=== PATIENT | female | born 1935 | race Caucasian/White ===

== ENCOUNTER 2016-07-25 11:37 | Inpatient (IN) | payer MEDICARE, OTHER ==
--- NOTE | 2016-07-19 15:58 | MH ---
cc: GALLITO BARRETT M.D. DATE OF ADMISSION: 07/25/2016 1935 HISTORY OF PRESENT ILLNESS The patient is an 81-year-old white female with a history of coronary artery disease, paroxysmal atrial fibrillation, diabetes, sleep apnea, lung cancer, who is now admitted for cardiac catheterization. The patient has been having occasional episodes of mild chest discomfort that began a few months ago associated with shortness of breath. These chest pains last up to a few minutes and are described as "heaviness". She did undergo nuclear stress test recently which showed inferior ischemia. The degree of ischemia was felt to be mild to moderate. The patient denies syncope, pedal edema, paroxysmal nocturnal dyspnea. Occasionally she experiences moderate lightheadedness and infrequent palpitations lasting a few seconds. PAST MEDICAL HISTORY 1. Sleep apnea. 2. Chronic bronchitis. 3. Coronary artery disease status post stent of the proximal right coronary artery in 2010 using a 2.5-mm Promus stent. 4. Diabetes. 5. Hyperlipidemia. 6. Hypothyroidism. 7. Irritable bowel syndrome. 8. Lung cancer status post right upper lobectomy. 9. Paroxysmal atrial fibrillation diagnosed 11/01/2010. MEDICATIONS Her cardiac medications: 1. Aspirin 81 mg daily. 2. Imdur 30 mg daily. 3. Metoprolol succinate 100 mg daily. 4. Pradaxa 150 mg b.i.d. 5. Simvastatin 20 mg q.h.s. ALLERGIES CODEINE, ERYTHROMYCIN, PENICILLIN, MORPHINE, HYDROCODONE. FAMILY HISTORY Noncontributory. SOCIAL HISTORY The patient is a former smoker. She drinks occasional alcohol. REVIEW OF SYSTEMS Review of systems as in the history of present illness, otherwise negative or noncontributory. PHYSICAL EXAMINATION VITAL SIGNS: On physical examination, her blood pressure 120/66 with a pulse of 66, respirations 15. GENERAL: She is a well-developed, well-nourished white female in no acute distress. HEENT: Jugular venous pressure is normal. Carotid pulses are 2+ bilaterally and without bruits. CHEST: Examination of the chest reveals clear lung purvis. CARDIAC: On cardiac examination she has a regular rhythm and rate without S3-S4 or murmur. ABDOMEN: She has a soft, nontender abdomen. Bowel sounds are present. There is no definite hepatosplenomegaly. EXTREMITIES: Examination of the extremities reveals no clubbing, cyanosis or edema. Peripheral pulses are normal throughout. IMPRESSION Intermediate risk nuclear stress test findings, ongoing angina like chest discomfort in this 81-year-old white female with a history of multiple medical problems including coronary artery disease, diabetes, paroxysmal atrial fibrillation, lung cancer. Because of these nuclear stress test findings and ongoing chest pains she has been recommended cardiac catheterization with possible percutaneous coronary intervention. The nature of these procedures and potential risks have been outlined. She agrees to proceed. PLAN Cardiac catheterization on 07/25/2016. MD COOKIE Arias/TLL /2:06 PM /3:50 PM MTDD
[~2016-07-25] VITALS: Ht 154.9 cm; Wt 83.1 kg
[2016-07-25 12:22] VITALS: BP 146/96; PULSE 67; RESP 18; TEMP 98.3; O2SAT 94
[2016-07-25] MEDS ORDERED: METO100T9 PO (12:28)
[2016-07-25] MEDS ORDERED: SITA1TAB2 PO (12:28)
[2016-07-25] MEDS ORDERED: LEVO75TA3 PO (12:28)
[2016-07-25] MEDS ORDERED: PRAD150C PO (12:28)
[2016-07-25] MEDS ORDERED: ASPI81CH CHEW (12:28)
[2016-07-25] MEDS ORDERED: CITA20TA4 PO (12:28)
[2016-07-25] MEDS ORDERED: SIMV20TA PO (12:28)
[2016-07-25] MEDS ORDERED: PANT40TA3 PO (12:28)
[2016-07-25] MEDS ORDERED: GABA300C5 PO (12:28)
[2016-07-25] MEDS ORDERED: ISOS30TA3 PO (12:28)
[2016-07-25] MEDS ORDERED: ADVA115A INH (12:28)
[2016-07-25] MEDS ORDERED: DIAZ5TAB PO (12:28)
[2016-07-25 13:08] LABS: AUTOMATED NEUTROPHIL # 4.2 TH/MM3 (1.8-7.7); BASOPHIL # 0.1 TH/MM3 (0-0.2); BASOPHIL % 1.2 % (0.0-2.0); EOSINOPHIL # 0.3 TH/MM3 (0-0.4); EOSINOPHIL % 4.2 % (0.0-4.0); HEMATOCRIT 38.4 % (35.0-46.0); HEMO FLAGS DIFF FINAL; LYMPH % 22.9 % (9.0-44.0); LYMPHOCYTE # 1.5 TH/MM3 (1.0-4.8); MEAN CELL VOLUME 97.7 FL (80.0-100.0); MEAN CORPUSCULAR HEMOGLOBIN 33.5 PG (27.0-34.0); MEAN CORPUSCULAR HGB CONC 34.3 % (32.0-36.0); MONO % 6.3 % (0.0-8.0); NEUT % 65.4 % (16.0-70.0); PLATELET COUNT 184 TH/MM3 (150-450); RED BLOOD COUNT 3.93 MIL/MM3 (4.00-5.30); WHITE BLOOD COUNT 6.3 TH/MM3 (4.0-11.0)
[2016-07-25 13:16] LABS: PROTHROMBIN TIME - PATIENT 11.4 SEC (9.8-11.6)
[2016-07-25 13:23] LABS: POTASSIUM 4.4 MEQ/L (3.5-5.1)
[2016-07-25] MEDS ORDERED: HEPARIN-NS/PF INJ 500 ML ONE (13:40)
[2016-07-25] MEDS ORDERED: NITROGLYCERIN INJ 5 ML ONE (13:41)
[2016-07-25] MEDS ORDERED: VERAPAMIL HCL 5 MG/2 ML VIAL ONE (13:41)
[2016-07-25] MEDS ORDERED: HEPARIN SODIUM - IV 10,000 UNITS/10 ML VIAL ONE (13:41)
[2016-07-25] MEDS ORDERED: MIDAZOLAM HCL 2 MG/2 ML VIAL ONE (13:41)
[2016-07-25] MEDS ORDERED: SODIUM CHLORIDE 0.9% FLUSH 5 ML FLUSH IVF PRN (14:30)
[2016-07-25] MEDS ORDERED: MISC INFORMATION XX ONE (14:30)
[2016-07-25] MEDS ORDERED: IOHEXOL 350 MG/ML 100 ML BTL (for Cath Lab) OTHER ONE (15:22)
--- NOTE | 2016-07-25 15:36 | EKG ---
Date Performed: 07/25/2016 Time Performed: 12:33:34 PTAGE: 81 years EKG: Sinus rhythm Poor R wave progression - probable normal variant Anteroseptal T wave changes are nonspecific Border line ECG NO PREVIOUS TRACING DOCTOR: Nima Conner Interpretating Date/Time 07/25/2016 15:35:19
--- NOTE | 2016-07-25 15:38 | MA ---
cc: GALLITO BARRETT M.D. DATE 07/25/2016 Cc: DATE OF 1935 PROCEDURE Left heart catheterization, selective coronary angiography, left ventriculography. PROCEDURE NOTE The patient was brought to the cardiac catheterization laboratory in a fasting state after having signed informed consent. The right wrist area was prepped and draped as per policy and anesthetized with 1% lidocaine. Arterial access was obtained via the right radial artery and a 6-Egyptian sheath placed. Coronary arteriography was performed using a 6-Egyptian Amonate catheter. Additional shots were taken of the left coronary system with a Andreas left 3.5 catheter. Left ventriculography was done using a multipurpose catheter. There were no apparent immediate complications. A TR band was applied to her right wrist to achieve good hemostasis. HEMODYNAMIC RESULTS Left ventricle 147 with an end-diastolic pressure of 15. Aorta 143/68 with a mean of 99. There was no significant transvalvular aortic gradient on pullback of the pigtail catheter. CORONARY ARTERIOGRAPHY The left main has minimal distal disease resulting in up to 10% stenosis. The left anterior descending has fairly diffuse very proximal disease resulting in up to 40% stenosis. In the mid-LAD there is 20% stenosis. The distal LAD has minimal luminal irregularities. The LAD gives rise to a small diagonal which is free of disease. The left circumflex is a medium-sized vessel giving rise to two relatively small obtuse marginals. There are minimal luminal irregularities in the proximal left circumflex and proximal second obtuse marginal. The right coronary artery demonstrates a stent in its proximal portion. The stent is widely patent. The rest of the vessel has minimal luminal irregularities. LEFT VENTRICULOGRAPHY Contrast injection of the left ventricle reveals no segmental wall motion abnormalities. Ejection fraction is estimated at 65%. CONCLUSION 1. Moderate proximal LAD disease, otherwise mild three-vessel coronary artery disease. 2. Widely patent proximal right coronary artery stent. 3. Normal left ventricular function with estimated ejection fraction of 65%. MD COOKIE Arias/KEVIN /2:26 PM /3:31 PM [facility]
[2016-07-25] MEDS: METOPROLOL SUCCINATE 50 MG EXTENDED RELEASE TAB PO SCH (17:15)
[2016-07-25] MEDS ORDERED: AMIODARONE 150 MG/D5W 97 ML BOLUS 10 MINUTES IV ONE ×2 (17:30)
[2016-07-25] MEDS ORDERED: AMIODARONE 450 MG/D5W (EXCEL) 241 ML IV SCH ×2 (17:30)
[2016-07-25] MEDS ORDERED: FLUTICASONE SALMETEROL INH SCH (21:00)
[2016-07-25] MEDS: DIAZEPAM 5 MG TAB PO PRN (21:03)
[2016-07-25] MEDS: DABIGATRAN ETEXILATE 150 MG CAP PO SCH (21:03)
[2016-07-25] MEDS: GABAPENTIN 300 MG CAP PO SCH (21:03)
[2016-07-25] MEDS: SODIUM CHLORIDE 0.9% FLUSH 5 ML FLUSH IVF SCH (21:04)
[2016-07-25 22:30] VITALS: BP 155/96; PULSE 106; RESP 16; TEMP 98.2; O2SAT 98
[2016-07-25 23:00] VITALS: BP 147/88; PULSE 94; RESP 16; TEMP 98.7; O2SAT 98
[2016-07-26] VITALS (16 sets, daily range): BP systolic 94–140; BP diastolic 54–96; PULSE 57–89; RESP 16–18; TEMP 98.1–98.6; O2SAT 96–98
[2016-07-26] MEDS: ISOSORBIDE MONONITRATE 30 MG TAB PO SCH (06:00)
[2016-07-26] MEDS: LEVOTHYROXINE SODIUM 75 MCG TAB PO SCH (06:00)
--- NOTE | 2016-07-26 08:06 | EKG ---
Date Performed: 07/26/2016 Time Performed: 06:28:44 PTAGE: 81 years EKG: Atrial fibrillation Prolonged QT interval Possible anterior infarct - age undetermined Abno rmal ECG COMPARED TO PRIOR ELECTROCARDIOGRAM, Atrial fibrillation has replaced Sinus rhythm . PREVIOUS TRACING : 07/25/2016 12.33 DOCTOR: Nima Conner Interpretating Date/Time 07/26/2016 08:05:47
[2016-07-26] MEDS: METOPROLOL SUCCINATE 50 MG EXTENDED RELEASE TAB PO SCH (08:16)
[2016-07-26] MEDS: PRAVASTATIN SOD 40 MG TAB PO SCH (08:16)
[2016-07-26] MEDS: CITALOPRAM HYDROBROMIDE 20 MG TAB PO SCH (08:16)
[2016-07-26] MEDS: PANTOPRAZOLE SOD 40 MG DELAYED RELEASE TAB PO SCH (08:17)
[2016-07-26] MEDS: SODIUM CHLORIDE 0.9% FLUSH 5 ML FLUSH IVF SCH ×2 (08:17→22:08)
[2016-07-26] MEDS: DABIGATRAN ETEXILATE 150 MG CAP PO SCH ×2 (08:17→22:08)
[2016-07-26] MEDS: ASPIRIN 81 MG CHEW TAB CHEW SCH (08:17)
[2016-07-26] MEDS: GABAPENTIN 300 MG CAP PO SCH ×2 (08:17→22:08)
--- NOTE | 2016-07-26 08:31 | PD.CARD.PN ---
Subjective Subjective Remarks Mild palpitations yesterday, none this morning. Mildly dizzy (vertigo). No CP , right wrist pain, dyspnea. Objective Medications Item Value Date Time Aspirin 81 mg 07/26/16 0900 (Aspirin Chew) DAILY/CHEW 07/26/16 0817 Pravastatin Sodium 40 mg 07/26/16 0900 (Pravachol) DAILY/PO 07/26/16 0816 Isosorbide 30 mg 07/26/16 0600 Mononitrate DAILY@06/PO 07/26/16 0600 (Imdur) Dabigatran 150 mg 07/25/16 2100 (Pradaxa) BID/PO 07/26/16 0817 Amiodarone HCl 250 ml @ 0 mls/hr 07/25/16 1730 450 mg/Dextrose CONTINUOUS/IV Metoprolol 100 mg 07/25/16 1715 Succinate DAILY/PO 07/26/16 0816 (Toprol Xl) Vital Signs / I&O Vital Signs Date Time Temp Pulse Resp B/P Pulse Ox O2 Delivery O2 Flow Rate FiO2 07/26/16 03:48 98.5 76 16 129/96 96 07/25/16 23:00 98.7 94 16 147/88 98 07/25/16 22:30 98.2 106 16 155/96 98 07/25/16 14:32 Room Air 07/25/16 12:22 98.3 67 18 146/96 94 I/O 07/25/16 07/25/16 07/25/16 07/26/16 07/26/16 07/26/16 07:00 15:00 23:00 07:00 15:00 23:00 Intake Total 777 ml Output Total 975 ml Balance -198 ml Intake Oral 480 ml IV Total 297 ml Output Urine Total 975 ml Physical Exam GENERAL: Well developed, well nourished. No acute distress. HEENT: Jugular venous pressure is normal. CHEST: Lungs clear to auscultation bilaterally. Unlabored respiratory effort. CARDIAC: Regular rate and rhythm without S3, S4, or murmur. ABDOMEN: Soft, nontender, no hepatosplenomegaly. Bowel sounds present. EXTREMITIES: No clubbing, cyanosis, or edema. Right radial area mildly ecchymotic, no hematoma, good capillary refill, normal radial/ulnar pulses. Laboratory Laboratory Tests Test 07/25/16 12:15 White Blood Count 6.3 TH/MM3 Red Blood Count 3.93 MIL/MM3 Hemoglobin 13.2 GM/DL Hematocrit 38.4 % Mean Corpuscular Volume 97.7 FL Mean Corpuscular Hemoglobin 33.5 PG Mean Corpuscular Hemoglobin 34.3 % Concent Red Cell Distribution Width 13.0 % Platelet Count 184 TH/MM3 Mean Platelet Volume 8.9 FL Neutrophils (%) (Auto) 65.4 % Lymphocytes (%) (Auto) 22.9 % Monocytes (%) (Auto) 6.3 % Eosinophils (%) (Auto) 4.2 % Basophils (%) (Auto) 1.2 % Neutrophils # (Auto) 4.2 TH/MM3 Lymphocytes # (Auto) 1.5 TH/MM3 Monocytes # (Auto) 0.4 TH/MM3 Eosinophils # (Auto) 0.3 TH/MM3 Basophils # (Auto) 0.1 TH/MM3 CBC Comment DIFF FINAL Differential Comment Prothrombin Time 11.4 SEC Prothromb Time International 1.0 RATIO Ratio Activated Partial 28.0 SEC Thromboplast Time Sodium Level 139 MEQ/L Potassium Level 4.4 MEQ/L Chloride Level 101 MEQ/L Carbon Dioxide Level 30.0 MEQ/L Anion Gap 8 MEQ/L Blood Urea Nitrogen 8 MG/DL Creatinine 0.79 MG/DL Estimat Glomerular Filtration 70 ML/MIN Rate Random Glucose 186 MG/DL Calcium Level 8.6 MG/DL Assessment and Plan Problem List: (1) Paroxysmal atrial fibrillation Assessment and Plan: Remains in NSR this morning. Tolerating IV Amiodarone so far. EKG pending. Continue IV Amiodarone, transition to oral later today, possible discharge tomorrow if stable. Continue dabigatran. (2) CAD (coronary artery disease) Assessment and Plan: Stable overnight. Right radial arteriotomy site stable. Favorable findings on cath yesterday. EF normal. Code Status full code Discussed Condition With patient Problem Qualifiers (1) CAD (coronary artery disease): Qualified Code: I25.118 - Coronary artery disease of inaja artery of inaja heart with stable angina pectoris Ajay Le MD Jul 26, 2016 08:31
[2016-07-26] MEDS: SODIUM CHLOR 0.9% 1000 ML INJ 1,000 ML IV SCH (09:17)
[2016-07-26] MEDS: DIAZEPAM 5 MG TAB PO PRN (22:10)
[2016-07-27] VITALS: BP 118/78; PULSE 61; RESP 16; TEMP 98.6; O2SAT 98
[2016-07-27 04:00] VITALS: BP 130/77; PULSE 63; RESP 16; TEMP 98.4; O2SAT 97
[2016-07-27] MEDS: ISOSORBIDE MONONITRATE 30 MG TAB PO SCH (05:36)
[2016-07-27] MEDS: LEVOTHYROXINE SODIUM 75 MCG TAB PO SCH (05:37)
[2016-07-27] MEDS: ASPIRIN 81 MG CHEW TAB CHEW SCH (07:39)
[2016-07-27] MEDS: PANTOPRAZOLE SOD 40 MG DELAYED RELEASE TAB PO SCH (07:39)
[2016-07-27] MEDS: DABIGATRAN ETEXILATE 150 MG CAP PO SCH (07:39)
[2016-07-27] MEDS: GABAPENTIN 300 MG CAP PO SCH (07:40)
[2016-07-27] MEDS: PRAVASTATIN SOD 40 MG TAB PO SCH (07:40)
[2016-07-27] MEDS: METOPROLOL SUCCINATE 50 MG EXTENDED RELEASE TAB PO SCH (07:40)
[2016-07-27] MEDS: CITALOPRAM HYDROBROMIDE 20 MG TAB PO SCH (07:40)
[2016-07-27] MEDS: SODIUM CHLORIDE 0.9% FLUSH 5 ML FLUSH IVF SCH (07:41)
[2016-07-27 08:00] VITALS: BP 146/91; PULSE 58; PULSE 71; RESP 16; TEMP 99; O2SAT 97
--- NOTE | 2016-07-27 08:30 | PD.CARD.PN ---
Subjective Subjective Remarks Denies CP, dyspnea, palpitations, dizziness, nausea, abdominal pain. Feels "good". Slept well. Objective Medications Item Value Date Time Amiodarone HCl 400 mg 07/27/16 0900 (Cordarone) DAILY/PO 07/27/16 0740 Aspirin 81 mg 07/26/16 0900 (Aspirin Chew) DAILY/CHEW 07/27/16 0739 Pravastatin Sodium 40 mg 07/26/16 0900 (Pravachol) DAILY/PO 07/27/16 0740 Isosorbide 30 mg 07/26/16 0600 Mononitrate DAILY@06/PO 07/27/16 0536 (Imdur) Dabigatran 150 mg 07/25/16 2100 (Pradaxa) BID/PO 07/27/16 0739 Metoprolol 100 mg 07/25/16 1715 Succinate DAILY/PO 07/27/16 0740 (Toprol Xl) Vital Signs / I&O Vital Signs Date Time Temp Pulse Resp B/P Pulse Ox O2 Delivery O2 Flow Rate FiO2 07/27/16 08:00 71 07/27/16 04:00 98.4 63 16 130/77 97 07/27/16 04:00 63 07/27/16 00:00 98.6 61 16 118/78 98 07/27/16 00:00 61 07/26/16 20:00 64 07/26/16 20:00 98.4 64 18 120/82 97 07/26/16 18:00 64 07/26/16 17:00 61 07/26/16 16:00 98.1 62 18 106/62 96 07/26/16 16:00 65 07/26/16 15:00 61 07/26/16 14:00 60 07/26/16 13:00 61 07/26/16 12:00 64 07/26/16 11:28 98.1 63 18 94/54 97 07/26/16 11:00 63 07/26/16 10:00 72 07/26/16 09:00 61 07/26/16 08:30 98.6 57 18 140/81 98 I/O 07/26/16 07/26/16 07/26/16 07/27/16 07/27/16 07/27/16 07:00 15:00 23:00 07:00 15:00 23:00 Intake Total 777 ml 650 ml 612 ml Output Total 975 ml 700 ml Balance -198 ml 650 ml -88 ml Intake Oral 480 ml 480 ml 480 ml IV Total 297 ml 170 ml 132 ml Output Urine Total 975 ml 700 ml # Voids 3 # Bowel Movements 0 Physical Exam GENERAL: Well developed, well nourished. No acute distress. HEENT: Jugular venous pressure is normal. CHEST: Lungs clear to auscultation bilaterally. Unlabored respiratory effort. CARDIAC: Regular rate and rhythm without S3, S4, or murmur. ABDOMEN: Soft, nontender, no hepatosplenomegaly. Bowel sounds present. EXTREMITIES: No clubbing, cyanosis, or edema. Right radial area mildly ecchymotic, no hematoma. Assessment and Plan Problem List: (1) Paroxysmal atrial fibrillation Assessment and Plan: Remains in NSR except brief recurrence last night of atrial fib. Tolerating Amiodarone. To discharge today, same home medications plus Amiodarone 400 mg qd, f/u with me in 2-3 weeks, ad padmini activity. (2) CAD (coronary artery disease) Assessment and Plan: Stable overnight. Right radial arteriotomy site stable. Favorable findings on cath. EF normal. Code Status full code Discussed Condition With patient Problem Qualifiers (1) CAD (coronary artery disease): Qualified Code: I25.118 - Coronary artery disease of ambler artery of ambler heart with stable angina pectoris Ajay Le MD Jul 27, 2016 08:30
[2016-07-27] MEDS ORDERED: AMIODARONE 200 MG TAB PO SCH (09:00)
[2016-07-27] MEDS: SODIUM CHLOR 0.9% 1000 ML INJ 1,000 ML IV SCH (09:10)
--- NOTE | 2016-07-27 17:18 | EKG ---
Date Performed: 07/27/2016 Time Performed: 08:40:24 PTAGE: 81 years EKG: Sinus rhythm Anterior T wave changes are nonspecific When compared to previous tracing, sinus rhythm has replaced Atrial fibrillation. Borderline ECG PREVIOUS TRACING : 07/26/2016 06.28 DOCTOR: Parrish Lombardo Interpretating Date/Time 07/27/2016 17:17:34
--- NOTE | 2016-08-03 09:39 | MD ---
cc: GALLITO BARRETT M.D. ADMISSION DATE: 07/25/2016 DISCHARGE DATE: 07/27/2016 DATE OF 1935 PRIMARY DISCHARGE DIAGNOSIS Paroxysmal atrial fibrillation. SECONDARY DIAGNOSES 1. Coronary artery disease. 2. Sleep apnea. 3. Diabetes. HISTORY OF PRESENT ILLNESS The patient is an 81-year-old white female with a history of coronary disease, paroxysmal atrial fibrillation, diabetes, sleep apnea, lung cancer, who was electively admitted for cardiac catheterization on 07/25/2016. She had been having ongoing episodes of chest discomfort for the past few months and underwent recent nuclear stress test suggesting inferior ischemia of mild to moderate degree. HOSPITAL COURSE The patient underwent cardiac catheterization on 07/25/2016 showing moderate proximal LAD disease (40%), otherwise minimal to mild disease as well as a widely patent proximal right coronary artery stent. Ejection fraction was 65%. After the heart catheterization she did have minor problems with bleeding from the right radial arteriotomy site. She also developed episodic paroxysmal atrial fibrillation with a rapid ventricular response. She was placed on intravenous amiodarone with eventual transition to oral administration, maintaining sinus rhythm except for brief recurrences. On the day of discharge she was ambulating without difficulty, completely asymptomatic and tolerating amiodarone. DISCHARGE MEDICATIONS 1. Aspirin 81 mg daily. 1. Citalopram 20 mg daily. 2. Pradaxa 150 mg b.i.d. 3. Valium 5 mg q.h.s. p.r.n. 4. Gabapentin 300 mg b.i.d. 5. Imdur 30 mg daily. 6. Levothyroxine 75 mcg daily. 7. Metoprolol succinate 100 mg daily. 8. Pantoprazole 40 mg daily. 9. Simvastatin 20 mg daily. 10. Januvia 100 mg daily. 11. Advair HFA 12 gram inhaler 2 puffs b.i.d. DISCHARGE DIET Low cholesterol, 1800 calories ADA. DISCHARGE ACTIVITY Ad padmini. DISCHARGE CONDITION Good. DISCHARGE FOLLOWUP In two to three weeks with Dr. Gallito Barrett. MD COOKIE Arias/MARIZOL /8:35 AM /9:[address] [facility]
== END 2016-07-27 11:35 | disposition home or self-care (01) | DRG 287 ==
LOC: HDOC 11:37 → HDIC 11:37 → HDOC 17:20 → HCIN 19:28
PROVIDERS: ADMIT Internal Medicine Cardiovascular Disease; ATTEND Internal Medicine Cardiovascular Disease
PROC: B2111ZZ Fluoroscopy of Multiple Coronary Arteries using Low Osmolar Contrast (ICD-10-PCS; 2016-07-25)
PROC: 4A023N7 Measurement of Cardiac Sampling and Pressure, Left Heart, Percutaneous Approach (ICD-10-PCS; 2016-07-25)
PROC: B2151ZZ Fluoroscopy of Left Heart using Low Osmolar Contrast (ICD-10-PCS; principal; 2016-07-25 13:45)
DX: I25.10 Atherosclerotic heart disease of native coronary artery without angina pectoris (principal); I48.0 Paroxysmal atrial fibrillation; E11.9 Type 2 diabetes mellitus without complications; Z90.2 Acquired absence of lung [part of]; Z85.118 Personal history of other malignant neoplasm of bronchus and lung; Z95.5 Presence of coronary angioplasty implant and graft; G47.30 Sleep apnea, unspecified; J42 Unspecified chronic bronchitis; E78.5 Hyperlipidemia, unspecified; E03.9 Hypothyroidism, unspecified; K58.9 Irritable bowel syndrome, unspecified; Z87.891 Personal history of nicotine dependence; R42 Dizziness and giddiness; Z79.02 Long term (current) use of antithrombotics/antiplatelets; Z79.82 Long term (current) use of aspirin
CPT/HCPCS: 80048; 85025; 85610; 85730; 93005; 93458; C1769; C1893; J0282; J1644; J2250; J3010; Q9967

== ENCOUNTER 2016-10-09 09:17 | Observation (INO) | payer MEDICARE, OTHER ==
[2016-10-09] VITALS (7 sets, daily range): BP systolic 140–181; BP diastolic 73–88; PULSE 70–80; RESP 18–22; TEMP 98.2–99.5; O2SAT 96–97
[~2016-10-09] VITALS: Ht 154.9 cm; Wt 75.0 kg
[~2016-10-09 09:17] MED LIST: ADVA115A INH; ASPI81CH CHEW; CITA20TA4 PO; DIAZ5TAB PO; GABA300C5 PO; ISOS30TA3 PO; LEVO75TA3 PO; METO100T9 PO; PANT40TA3 PO; PRAD150C PO; SIMV20TA PO; SITA1TAB2 PO
[2016-10-09] MEDS: RESP: ALBUTEROL 2.5 MG/IPRATROPIUM 0.5 MG NEB (SCH) INH (09:47)
--- NOTE | 2016-10-09 10:10 | RADRPT ---
EXAM DATE/TIME: 10/09/2016 09:36 [place] COMPARISON: No previous studies available for comparison. INDICATIONS : Cough MEDICAL HISTORY : asthma SURGICAL HISTORY : Coronary artery stent. ENCOUNTER: Initial ACUITY: 1 day PAIN SCORE: 0/10 LOCATION: Bilateral chest FINDINGS: Cardiomegaly. Clear lungs. EKG leads overlie the chest. Osseous structures are intact. CONCLUSION: No acute disease. Filiberto Gaxiola MD on October 09, 2016 at 10:08 Board Certified Radiologist. This report was verified electronically.
[2016-10-09] MEDS ORDERED: GLIP5TAB8 PO (10:16)
[2016-10-09] MEDS ORDERED: VITA100036 PO (10:16)
[2016-10-09] MEDS ORDERED: LUTE40CA2 PO (10:16)
[2016-10-09] MEDS ORDERED: AMIO400T PO (10:16)
[2016-10-09] MEDS ORDERED: [UNRECOGNIZED DRUG - CODE] SL (10:16)
[2016-10-09] MEDS ORDERED: ONDANSETRON HCL 4 MG/2 ML VIAL IV PUSH ONE (10:30)
[2016-10-09 10:43] LABS: AUTOMATED NEUTROPHIL # 4.8 TH/MM3 (1.8-7.7); BASOPHIL # 0.1 TH/MM3 (0-0.2); BASOPHIL % 0.8 % (0.0-2.0); EOSINOPHIL # 0.1 TH/MM3 (0-0.4); EOSINOPHIL % 1.7 % (0.0-4.0); HEMATOCRIT 37.9 % (35.0-46.0); HEMO FLAGS DIFF FINAL; LYMPH % 23.4 % (9.0-44.0); LYMPHOCYTE # 1.6 TH/MM3 (1.0-4.8); MEAN CELL VOLUME 97.8 FL (80.0-100.0); MEAN CORPUSCULAR HEMOGLOBIN 33.6 PG (27.0-34.0); MEAN CORPUSCULAR HGB CONC 34.3 % (32.0-36.0); MONO % 5.1 % (0.0-8.0); PLATELET COUNT 157 TH/MM3 (150-450); RED BLOOD COUNT 3.87 MIL/MM3 (4.00-5.30); RED CELL DISTRIBUTION WIDTH 14.2 % (11.6-17.2)
[2016-10-09 10:51] LABS: APTT (PATIENT) 27.2 SEC (24.3-30.1); PROTHROMBIN TIME - PATIENT 11.3 SEC (9.8-11.6)
[2016-10-09 10:56] LABS: BLOOD, URINE NEG (NEG); COMMENT (UR) CULT NOT INDICATED; CULTURE IF INDICATED CULT NOT INDICATED; GLUCOSE,URINE TRACE mg/dL (NEG); KETONE, URINE 10 mg/dL (NEG); NITRITE,URINE NEG (NEG); PH, URINE 5.5 (5.0-8.5); SQUAMOUS EPITHELIAL CELL URINE <1 /hpf (0-5); URINE COLOR LIGHT-YELLOW (YELLW/STRAW)
[2016-10-09 11:14] LABS: ALKALINE PHOSPHATASE 66 U/L (45-117); ALT (GPT) 39 U/L (10-53); ANION GAP 13 MEQ/L (5-15); AST (GOT) 48 U/L (15-37); BICARBONATE 24.2 MEQ/L (21.0-32.0); BLOOD UREA NITROGEN 6 MG/DL (7-18); CHLORIDE 96 MEQ/L (98-107); GLOMERULAR FILTRATION RATE 61 ML/MIN (>89); SODIUM (NA) 133 MEQ/L (136-145); TOTAL BILIRUBIN ADULT 0.9 MG/DL (0.2-1.0)
[2016-10-09 11:25] LABS: POTASSIUM 4.2 MEQ/L (3.5-5.1)
--- NOTE | 2016-10-09 12:19 | PD ---
HPI Chief Complaint: Respiratory Symptoms Time Seen by Provider: 09:25 Travel History International Travel<30 days: No Contact w/Intl Traveler<30days: No Traveled to known affect area: No History of Present Illness HPI 81-year-old female complains of shortness of breath. Patient states that she has history of asthma. Patient having coughing congestion the past 2 weeks. Patient states the cough is persistent and now with productive. Patient denies any chest pain. Patient states that she has shortness of breath. Patient denies any fever chills. Patient has history hypertension, diabetes, CAD status post stent placement. EMS was called. Patient was given albuterol treatment 2 and Solu-Medrol [address] to the ED. PFSH Past Medical History Hx Anticoagulant Therapy: Yes (PRADAXA, ASPIRIN) Cancer: Yes (throat) Cardiac Catheterization: Yes (STENTS) Cardiovascular Problems: Yes High Cholesterol: Yes Chest Pain: Yes Congestive Heart Failure: Yes Diabetes: Yes Patient Takes Glucophage: No Hiatal Hernia: Yes Hypertension: Yes Respiratory: Yes Thyroid Disease: Yes (hypo) Past Surgical History Appendectomy: Yes Hysterectomy: Yes Tonsillectomy: Yes Other Surgery: Yes (HERNIA REPAIR) Social History Alcohol Use: Yes (DAILY, WINE, 2 GLASSES ON AVERAGE) Tobacco Use: No Substance Use: No Allergies-Medications (Allergen,Severity, Reaction): Coded Allergies: Codeine (Verified Adverse Reaction, Unknown, 10/09/16) Erythromycin (Verified Adverse Reaction, Unknown, 10/09/16) Hydrocodone (Verified Adverse Reaction, Unknown, 10/09/16) Morphine (Verified Adverse Reaction, Unknown, 10/09/16) Penicillin (Verified Adverse Reaction, Unknown, 10/09/16) Reported Meds & Prescriptions Reported Meds & Active Scripts Active Reported Vitamin D3 (Cholecalciferol) 1,000 Unit Cap 1,000 Units PO DAILY Vitamin B-12 (Cyanocobalamin) 6,000 Mcg Subl 6,000 Mcg SL DAILY Lutein 40 Mg Cap 40 Mg PO DAILY Amiodarone (Amiodarone HCl) 400 Mg Tab 400 Mg PO DAILY Glipizide 5 Mg Tab 5 Mg PO DAILY Take 30 minutes before a meal Simvastatin 20 Mg Tab 20 Mg PO DAILY Pradaxa (Dabigatran) 150 Mg Cap 150 Mg PO BID Pantoprazole (Pantoprazole Sodium) 40 Mg Tab 40 Mg PO DAILY Metoprolol Succinate ER 24 HR (Metoprolol Succinate) 100 Mg Tab 100 Mg PO DAILY Levothyroxine (Levothyroxine Sodium) 75 Mcg Tab 75 Mcg PO DAILY Januvia (Sitagliptin Phosphate) 100 Mg Tab 100 Mg PO DAILY Isosorbide Mononitrate ER (Isosorbide Mononitrate) 30 Mg Baylee 30 Mg PO DAILY Gabapentin 300 Mg Cap 300 Mg PO BID Diazepam 5 Mg Tab 5 Mg PO HS PRN Citalopram (Citalopram Hydrobromide) 20 Mg Tab 20 Mg PO DAILY Aspirin 81 Mg Chew 81 Mg CHEW DAILY Advair Hfa 12 GM Inh (Fluticasone-Salmeterol 12 GM Inh) 115-21 Mcg/Act Aer 2 Puff INH BID Review of Systems General / Constitutional: No: Fever Eyes: No: Visual changes HENT: No: Headaches Cardiovascular: No: Chest Pain or Discomfort Respiratory: Positive: Cough, Shortness of Breath, Wheezing Gastrointestinal: No: Abdominal Pain Genitourinary: No: Dysuria Musculoskeletal: No: Pain Skin: No Rash Neurologic: No: Weakness Psychiatric: No: Depression Endocrine: No: Polydipsia Hematologic/Lymphatic: No: Easy Bruising Physical Exam Narrative GENERAL: Well-nourished, well-developed patient. SKIN: Focused skin assessment warm/dry. HEAD: Normocephalic. EYES: No scleral icterus. No injection or drainage. NECK: Supple, trachea midline. No JVD or lymphadenopathy. CARDIOVASCULAR: Regular rate and rhythm without murmurs, gallops, or rubs. RESPIRATORY: Breath sounds equal bilaterally. No accessory muscle use. Patient has moderate expiratory wheezes bilaterally. Few rhonchi at the bases. GASTROINTESTINAL: Abdomen soft, non-tender, nondistended. MUSCULOSKELETAL: No cyanosis, or edema. BACK: Nontender without obvious deformity. No CVA tenderness. Neurologic exam normal. Data Data Last Documented VS Vital Signs Date Time Temp Pulse Resp B/P Pulse Ox O2 Delivery O2 Flow Rate FiO2 10/09/16 09:29 22 97 Room Air 10/09/16 09:23 99.1 79 181/88 Orders Complete Blood Count With Diff (10/09/16 09:26) Comprehensive Metabolic Panel (10/09/16:26) B-Type Natriuretic Peptide (10/09/16 09:26) Act Partial Throm Time (Ptt) (4/10/17 09:26) Prothrombin Time / Inr (Pt) (10/09/16:) Urinalysis - C+S If Indicated (10/09/16) Influenzae A/B Antigen (10/09/16) Blood Culture (10/09/16) Iv Access Insert/Monitor (10/09/16) Electrocardiogram (10/09/16) Ecg Monitoring (10/09/16) Oximetry (10/09/16) Oxygen Administration (10/09/16) Chest, Single Ap (10/09/16) Albuterol-Ipratropium Neb (Duoneb Neb) (10/09/16:) Ondansetron Inj (Zofran Inj) (10/09/16 10:) Labs Laboratory Tests Test 10/09/16 10:00 White Blood Count 7.0 TH/MM3 Red Blood Count 3.87 MIL/MM3 Hemoglobin 13.0 GM/DL Hematocrit 37.9 % Mean Corpuscular Volume 97.8 FL Mean Corpuscular Hemoglobin 33.6 PG Mean Corpuscular Hemoglobin 34.3 % Concent Red Cell Distribution Width 14.2 % Platelet Count 157 TH/MM3 Mean Platelet Volume 9.0 FL Neutrophils (%) (Auto) 69.0 % Lymphocytes (%) (Auto) 23.4 % Monocytes (%) (Auto) 5.1 % Eosinophils (%) (Auto) 1.7 % Basophils (%) (Auto) 0.8 % Neutrophils # (Auto) 4.8 TH/MM3 Lymphocytes # (Auto) 1.6 TH/MM3 Monocytes # (Auto) 0.4 TH/MM3 Eosinophils # (Auto) 0.1 TH/MM3 Basophils # (Auto) 0.1 TH/MM3 CBC Comment DIFF FINAL Differential Comment Prothrombin Time 11.3 SEC Prothromb Time International 1.0 RATIO Ratio Activated Partial 27.2 SEC Thromboplast Time Urine Color LIGHT-YELLOW Urine Turbidity CLEAR Urine pH 5.5 Urine Specific Cecil 1.009 Urine Protein TRACE mg/dL Urine Glucose (UA) TRACE mg/dL Urine Ketones 10 mg/dL Urine Occult Blood NEG Urine Nitrite NEG Urine Bilirubin NEG Urine Urobilinogen LESS THAN 2.0 MG/DL Urine Leukocyte Esterase NEG Urine RBC 1 /hpf Urine WBC 1 /hpf Urine Squamous Epithelial <1 /hpf Cells Microscopic Urinalysis Comment CULT NOT INDICATED Sodium Level 133 MEQ/L Potassium Level 4.2 MEQ/L Chloride Level 96 MEQ/L Carbon Dioxide Level 24.2 MEQ/L Anion Gap 13 MEQ/L Blood Urea Nitrogen 6 MG/DL Creatinine 0.89 MG/DL Estimat Glomerular Filtration 61 ML/MIN Rate Random Glucose 210 MG/DL Calcium Level 8.9 MG/DL Total Bilirubin 0.9 MG/DL Aspartate Amino Transf 48 U/L (AST/SGOT) Alanine Aminotransferase 39 U/L (ALT/SGPT) Alkaline Phosphatase 66 U/L B-Type Natriuretic Peptide 49 PG/ML Total Protein 7.7 GM/DL Albumin 3.9 GM/DL MDM Medical Decision Making Medical Screen Exam Complete: Yes Emergency Medical Condition: Yes Interpretation(s) Last Impressions Chest X-Ray 10/09/16 0926 Signed Impressions: Service Date/Time: Sunday, October 09, 2016 09:36 - CONCLUSION: No acute disease. Filiberto Gaxiola MD 12:20 PM. CBC within normal limit. Sodium 133. Glucose 210. BNP 49. UA is negative. Influenza A B antigen negative. Differential Diagnosis Differential diagnosis including acute exacerbation of asthma, bronchitis, pneumonia. Narrative Course 81-year-old female with coughing and wheezing shortness of breath. History of asthma. Patient was given albuterol treatment 2 and Solu-Medrol 125 mg IV by EMS. Albuterol with Atrovent unit dose treatment 2. Levaquin 750 mg IV given. Diagnosis Primary Impression: Acute severe exacerbation of asthma Admitting Information Admitting Physician Requests: Observation Rod Read MD Oct 09, 2016 12:19
[2016-10-09] MEDS ORDERED: LEVOFLOXACIN 750 MG PREMIX INJ 150 ML IV ONE (12:30)
[2016-10-09] MEDS: LEVOFLOXACIN 750 MG PREMIX INJ 150 ML IV SCH (13:00)
[2016-10-09] MEDS ORDERED: SODIUM CHLORIDE 0.9% FLUSH 10 ML FLUSH IV FLUSH PRN (13:00)
[2016-10-09] MEDS ORDERED: HEPARIN SODIUM - SQ 10,000 UNITS/ML VIAL SQ SCH (13:00)
[2016-10-09] MEDS: methylPREDNISolone SOD SUCC 125 MG/2 ML VIAL IVP SCH ×2 (13:28→21:25)
[2016-10-09] MEDS ORDERED: DEXTROSE 50% IN WATER 50 ML VIAL(D50) IV PUSH PRN (13:30)
[2016-10-09] MEDS ORDERED: GLUCAGON 1 MG/ML VIAL OTHER PRN (13:30)
[2016-10-09] MEDS ORDERED: ENALAPRILAT 2.5 MG/2 ML VIAL IV PUSH PRN (13:45)
[2016-10-09] MEDS ORDERED: SODIUM CHLOR 0.9% 1000 ML INJ 1,000 ML IV ONE (14:00)
--- NOTE | 2016-10-09 14:16 | MH ---
cc: SHAWN LÓPEZ MD DATE OF ADMISSION: 10/09/2016 DATE OF : 1935 CHIEF COMPLAINT Shortness of breath and cough, low grade fever. TRAVEL IN THE LAST 30 DAYS None. HISTORY OF PRESENT ILLNESS This is a pleasant 81-year-old white female who was in her usual state of health up until about two weeks ago. The patient notes that she started out with a mild cough which progressively got worse. The patient states that she coughs uncontrollably and has symptoms of shortness of breath. For the past four days the patient's cough and shortness of breath has gotten worse and she started running a low grade fever. The patient states that she has a bed that can roll up and sit up at home and she has been in that position for the past four days. The patient also states that she has chronic bronchitis and asthma and follows with her PCP, Dr. Ting Winter, for her medical needs. The patient also had symptoms of nausea but no emesis. She has been taking dsut-rnl-nualqwy Robitussin and medications for her fever. The was in the hospital back in July with chest pain. She was noted to have paroxysmal atrial fibrillation, probably secondary to her COPD, and had a cardiac cath that showed mild disease which was treated with medical management. The patient was given albuterol treatments x2 en route as well as 125 mg of Solu-Medrol on the way to the ER and her breathing has much improved. PAST MEDICAL HISTORY 1. Positional vertigo. 2. Lung cancer. 3. Cardiovascular disease. 4. Hyperlipidemia. 5. Chest pain. 6. Sleep apnea. 7. Diabetes type 2, pls-xtfaqhb-iylprvasb. 8. Hiatal hernia. 9. Hypertension. 10. Hypothyroidism. 11. History of constipation and/or diarrhea. 12. COPD. 13. Chronic bronchitis. PAST SURGICAL HISTORY 1. Appendectomy. 2. Hysterectomy. 3. Tonsillectomy. 4. Hernia repair. 5. Right lung upper lobe lobectomy. 6. Cardiac stents. 7. Seasonal allergies. ALLERGIES 1. CODEINE. 2. ERYTHROMYCIN. 3. HYDROCODONE. 4. MORPHINE. 5. PENICILLIN. MEDICATIONS Reported medications: 1. Vitamin-D3. 2. Vitamin-B12. 3. Lutein. 4. Amiodarone. 5. Glipizide. 6. Simvastatin. 7. Pradaxa. 8. Pantoprazole. 9. Metoprolol. 10. Levothyroxine. 11. Januvia. 12. Isosorbide. 13. Gabapentin. 14. Valium. 15. Citalopram. 16. Aspirin. 17. Advair. SOCIAL HISTORY The patient is , [place]. She had previous tobacco use in her younger years but quit approximately 12 years ago. No illicit drug use. Social alcohol use daily with approximately two glasses of wine. REVIEW OF SYSTEMS A 12-point review was done. Positives noted in the HPI which include cough, shortness of breath, nausea, low-grade fever, some wheezing. Otherwise systems are negative or unremarkable. PHYSICAL EXAMINATION VITAL SIGNS: Temperature 99.1, pulse 79, respirations 22, blood pressure 181/88, pulse ox 97 on wound air. PHYSICAL EXAMINATION GENERAL: A mildly obese white female who looks younger than her stated age resting in the bed, alert, oriented and very talkative. HEENT: Atraumatic, normocephalic. Pupils equal, round, reactive to light and accommodation. Mucous membranes are dry and pale. NECK: Supple. CARDIOVASCULAR: S1, S2, regular rate and rhythm. No murmurs, rubs or gallops appreciated. PULMONARY: She does have some mild rhonchi in her upper purvis and some mild expiratory wheezing in the upper and lower lobes. The patient has a hacking wheezy cough, loose but nonproductive. ABDOMEN: Round, soft, nontender, nondistended. Active bowel sounds in all four quadrtans. EXTREMITIES: She moves all of her extremities with purpose. She has no pedal edema. No cyanosis. No deformities. NEUROLOGIC: She is alert and oriented, mildly anxious over current condition but a fairly good historian. SKIN: Pale pink, warm and dry. LABORATORY DATA WBC count 7, RBC 3.87, hemoglobin 13, hematocrit 37.9, platelet count 157. Sodium 133, potassium 4.2, chloride 96, carbon dioxide 24.2, anion gap 13, BUN 6, creatinine 0.89, GFR 61, random glucose 210, calcium 8.9, total bilirubin 0.9, AST 48, ALT 39, alkaline phosphatase 66, BNP 49, total protein 7.7, albumin 3.9. INR is 1. Urine is light yellow, pH 5.5, specific gravity 1.009, trace protein, trace glucose, 10 ketones. Negative occult blood, nitrites, bilirubin and leukocyte esterase. Culture is not indicated. IMAGING DATA Chest x-ray shows no acute disease. ASSESSMENT 1. COPD exacerbation/asthmatic with persistent cough and congestion. 2. Diabetes type 2 uncontrolled. 3. History of paroxysmal atrial fibrillation. 4. History of coronary artery disease and cardiovascular disease. 5. Hyponatremia, mild. PLAN 1. Admit for observation. 2. Patient will be monitored with vital signs q.4h. and p.r.n. as warranted. 3. Will place her on telemetry due to her cardiovascular disease and history of paroxysmal atrial fibrillation. 4. Reconcile her medications. 5. Will keep her on DuoNeb, IV methylprednisolone. 6. Monitor her labs. 7. Accu-Cheks a.c. and h.s. and monitor blood sugars with her treatment regimen of sliding scale. 8. The patient is on Pradaxa. We will use that for our DVT prophylaxis. 9. Protonix for peptic ulcer disease prophylaxis. 10. O2 as warranted. 11. The patient's current hospital stay will depend on how she responds to her treatment plan. 12. To my knowledge the patient is full code, full aggressive care and we will follow. Dictated by: VALERIA Jo MD MANDI Howell/PORSHA /1:26 PM /1:47 PM
[2016-10-09] MEDS: glipiZIDE 5 MG TAB PO SCH ×2 (15:00→16:11)
[2016-10-09] MEDS ORDERED: AMIODARONE 200 MG TAB PO SCH (15:00)
[2016-10-09] MEDS: LEVOTHYROXINE SODIUM 75 MCG TAB PO SCH (15:44)
[2016-10-09] MEDS: ISOSORBIDE MONONITRATE 30 MG TAB PO SCH (15:44)
[2016-10-09] MEDS: METOPROLOL SUCCINATE 50 MG EXTENDED RELEASE TAB PO SCH (15:45)
[2016-10-09] MEDS: GABAPENTIN 300 MG CAP PO SCH ×2 (15:45→21:24)
[2016-10-09] MEDS: CITALOPRAM HYDROBROMIDE 20 MG TAB PO SCH (15:45)
[2016-10-09] MEDS: PANTOPRAZOLE SOD 40 MG DELAYED RELEASE TAB PO SCH (15:45)
[2016-10-09] MEDS: ASPIRIN 81 MG CHEW TAB CHEW SCH (15:45)
[2016-10-09] MEDS: DABIGATRAN ETEXILATE 150 MG CAP PO SCH ×2 (17:14→21:24)
[2016-10-09] MEDS: RESP: ALBUTEROL 2.5 MG/3 ML NEB (PRN) INH (20:29)
[2016-10-09] MEDS ORDERED: ADVAIR INH SCH (21:00)
[2016-10-09] MEDS: SODIUM CHLORIDE 0.9% FLUSH 10 ML FLUSH IV FLUSH SCH (21:00)
[2016-10-09] MEDS: [UNRECOGNIZED DRUG - OTHER] INH SCH (21:25)
[2016-10-10] VITALS (10 sets, daily range): BP systolic 122–145; BP diastolic 61–79; PULSE 70–86; RESP 18–20; TEMP 97.9–99.6; O2SAT 92–96
[2016-10-10] MEDS: methylPREDNISolone SOD SUCC 125 MG/2 ML VIAL IVP SCH ×4 (00:57→22:08)
[2016-10-10] MEDS: RESP: ALBUTEROL 2.5 MG/3 ML NEB (PRN) INH ×4 (03:40→19:22)
[2016-10-10 07:54] LABS: AUTOMATED NEUTROPHIL # 12.9 TH/MM3 (1.8-7.7); HEMATOCRIT 35.4 % (35.0-46.0); HEMO FLAGS DIFF FINAL; LYMPH % 6.7 % (9.0-44.0); LYMPHOCYTE # 0.9 TH/MM3 (1.0-4.8); MEAN CELL VOLUME 99.1 FL (80.0-100.0); MEAN CORPUSCULAR HEMOGLOBIN 33.3 PG (27.0-34.0); MEAN CORPUSCULAR HGB CONC 33.6 % (32.0-36.0); MONO % 1.8 % (0.0-8.0); NEUT % 91.5 % (16.0-70.0); PLATELET COUNT 170 TH/MM3 (150-450); RED BLOOD COUNT 3.57 MIL/MM3 (4.00-5.30); RED CELL DISTRIBUTION WIDTH 14.3 % (11.6-17.2); WHITE BLOOD COUNT 14.1 TH/MM3 (4.0-11.0)
[2016-10-10 08:21] LABS: BICARBONATE 24.5 MEQ/L (21.0-32.0); POTASSIUM 3.7 MEQ/L (3.5-5.1)
--- NOTE | 2016-10-10 08:46 | MB ---
cc: GALLITO BARRETT M.D. DATE OF CONSULTATION: 10/10/2016 REASON FOR CONSULTATION Shortness of breath, consider amiodarone toxicity. HISTORY OF PRESENT ILLNESS The patient is an 81-year-old white female with a history of multiple medical problems including chronic bronchitis, sleep apnea, coronary artery disease, diabetes, lung cancer, paroxysmal atrial fibrillation, who presented to the hospital with a several-week history of increasing shortness of breath and wheezing. Since coming into the hospital her dyspnea has only mildly improved. In the last few weeks she has also had a moderate overall nonproductive cough without hemoptysis. She reports subjective fevers. Rarely she experiences fleeting right-sided chest pain. The last few days she believes she has had occasional fluttering palpitations. She denies pedal edema, paroxysmal nocturnal dyspnea, lightheadedness, syncope, near-syncope. PAST MEDICAL HISTORY 1. Sleep apnea. 2. Chronic bronchitis. 3. Coronary artery disease status post stent of the proximal right coronary 2011 with a 2.5 mm Promus stent. Her last heart catheterization was 07/25/2016 showing 40% ostial to proximal LAD disease, 20% distal left main, mild left circumflex disease, widely patent proximal right coronary artery stent, ejection fraction 65%. 4. Diabetes. 5. Hyperlipidemia. 6. Hypothyroidism. 7. Irritable bowel syndrome. 8. Lung cancer, status post right upper lobectomy. 9. Paroxysmal atrial fibrillation diagnosed 11/01/2010 at [facility] with a recurrence 07/25/2016 after her heart catheterization. MEDICATIONS Her cardiac medications at home: 1. Amiodarone 400 mg q. daily. 2. Aspirin 81 mg q. daily. 3. Glipizide 5 mg q. daily. 4. Imdur 30 mg q. daily. 5. Metoprolol succinate, one q. daily. 6. Pradaxa 150 mg b.i.d. 7. Simvastatin 20 mg q.h.s. ALLERGIES 1. CODEINE. 2. ERYTHROMYCIN. 3. HYDROCODONE. 4. MORPHINE. 5. PENICILLIN. FAMILY HISTORY Noncontributory. SOCIAL HISTORY The patient is a former smoker. She drinks occasional alcohol. REVIEW OF SYSTEMS As in the history of present illness, otherwise negative or noncontributory. She also denies headache, visual changes, unilateral weakness or numbness, abdominal pain, melena, bright red blood per rectum, dyspepsia. PHYSICAL EXAMINATION VITAL SIGNS: On physical examination her blood pressure is 124/69 with a pulse of 75, respirations 19. GENERAL: In general she is a well-developed, well-nourished white female in no acute distress. HEENT/NECK: Jugular venous pressure is normal. Carotid pulses are 2+ bilaterally and without bruits. CHEST: Examination of the chest reveals scattered expiratory wheezes. CARDIAC: On cardiac examination she has a regular rhythm and rate without S3, S4, or murmur. ABDOMEN: On abdominal examination she has a soft, obese, nontender abdomen. Bowel sounds are present. There is no definite hepatosplenomegaly. EXTREMITIES: Examination of the extremities reveals no clubbing, cyanosis or edema. LABORATORY Laboratory data includes WBC 14.1, hemoglobin 11.9, platelets 170, potassium 4.2, BUN 6, creatinine 0.89, brain natriuretic peptide level 49, INR 1.0. IMAGING Chest x-ray shows no acute disease. EKG EKG shows sinus rhythm, nonspecific T-wave abnormality. IMPRESSION Stable cardiac status in this 81-year-old white female with a history of multiple medical problems including coronary artery disease, chronic bronchitis, sleep apnea, diabetes, lung cancer, paroxysmal atrial fibrillation, now admitted with COPD exacerbation. Overall I doubt her shortness of breath is due to a cardiac etiology. She has no other signs or symptoms of congestive heart failure. Her chest x-ray is clear of any pulmonary edema. I also doubt amiodarone is causing lung toxicity. There is no evidence for infiltrates on chest x-ray. There are no definite pleural effusions or evidence of pleural thickening. RECOMMENDATIONS 1. Continue her usual home cardiac medications, although at this point would reduce her amiodarone dose to 200 mg daily to reduce the risk in the future of lung toxicity. 2. Follow-up as needed. Thank you very much for the consultation. MD COOKIE Arias/PORSHA /8:10 AM /8:33 AM MARIANNE
--- NOTE | 2016-10-10 08:56 | HHI.PR ---
Subjective Remarks Resting in bed Cell phone in bed with her Awake Mild wheeze noted Low-grade fever 99.6 (Karen Garcia) Objective Objective Results - Vital Signs Date Time Temp Pulse Resp B/P Pulse Ox O2 Delivery O2 Flow Rate FiO2 10/10/16 07:45 97.9 75 19 124/69 94 10/10/16 07:21 96 21 10/10/16 05:04 99.6 75 18 125/61 95 10/10/16 00:25 99.4 72 18 140/79 95 10/09/16 22:29 70 10/09/16 19:15 99.5 71 18 156/75 96 10/09/16 17:19 74 10/09/16 14:22 98.2 80 20 140/73 97 10/09/16 13:56 80 18 167/79 97 Room Air 10/09/16 09:29 22 97 Room Air 10/09/16 09:29 22 97 Room Air 10/09/16 09:29 97 Room Air 10/09/16 09:23 99.1 79 22 181/88 97 (Karen Garcia) Result Diagram: 10/10/16 0614 10/10/16 0614 ROS General: Fatigue, Weakness, Other (10 point ROS done positives noted weakness fatigue mild anxiety mild shortness of breath and wheezing basally with exertion other systems negative or unremarkable) Pulmonary: SOB, Wheezing Neuro/MS: Other (anxiety) (Karen Garcia) Physical Exam Physical Exam PHYSICAL EXAMINATION GENERAL: This is an obese well-developed, well-nourished female who is resting in the bed. She is alert and awake, talkative HEAD: Normocephalic without any lesion or mass noted. Facial features appear symmetric. OROPHARYNGEAL: Oropharynx without erythema or edema. NECK: Supple. No nuchal rigidity or lymphadenopathy. Trachea midline without deviation. CARDIAC: Regular rhythm, regular rate, S1 and S2 are heard. Murmur none no gallops or rubs. LUNGS: Diminished to auscultation bilaterally. Mild expiratory wheeze, no rhonchi mild use of accessory muscles on inspiration or expiration. Currently on room air ABDOMEN: Soft, nontender, no organomegaly or masses. Bowel sounds are heard in all four quadrants. No rebound. No guarding. EXTREMITIES: No edema. Pulses equal bilateral. NEUROLOGICAL: Patient mood and affect appropriate. No focal deficit SKIN:Warm and moist Objective Remarks My nose is draining some (Karen Garcia) A/P Assessment and Plan 1. COPD exacerbation/asthmatic with persistent cough and congestion. 2. Diabetes type 2 uncontrolled. 3. History of paroxysmal atrial fibrillation. 4. History of coronary artery disease and cardiovascular disease. 5. Hyponatremia, mild. PLAN 1. Continue duo nebs, O2 as needed, medications, monitor vital signs and labs. Will check on her normal antihistamines for her seasonal allergies. Continue Levaquin IV, Zyrtec added 2. vital signs reviewed, patient has low-grade temp, otherwise vital signs are normal 3. telemetry, no acute tachycardia noted or A. fib, cardiology consult, decreased amiodarone dose, which could be exacerbating her wheezing 4. Monitor her labs, gentle hydration with normal saline, IV prednisone Accu-Cheks a.c. and h.s. and monitor blood sugars The patient is on Pradaxa. We will use that for our DVT prophylaxis. Protonix for peptic ulcer disease prophylaxis. Discharge planning will be reviewed again tomorrow, should be within the next 1- 2 days Discussed With: Nurse, Family, Other (, seen on her behalf) (Karen Garcia) Assessment and Plan Patient seen and examined breathing better off oxygen decrease Methylprednisolone to q8H appreciate Cardiology input Amio decreased to 200 mg po daily anticipate discharge in am leucocytosis likely sec to steroids labs in am discussed with patient discussed with nursing staff discussed with Karen SHAW (Miriam Mckeon MD) Karen Garcia Oct 10, 2016 08:56 Miriam Mckeon MD Oct 10, 2016 10:06
[2016-10-10] MEDS ORDERED: LUTEIN 40 MG PO SCH (09:00)
[2016-10-10] MEDS: SODIUM CHLORIDE 0.9% FLUSH 10 ML FLUSH IV FLUSH SCH ×2 (10:10→10:19)
[2016-10-10] MEDS: [UNRECOGNIZED DRUG - OTHER] INH SCH ×2 (10:11→22:08)
[2016-10-10] MEDS: ASPIRIN 81 MG CHEW TAB CHEW SCH (10:11)
[2016-10-10] MEDS: glipiZIDE 5 MG TAB PO SCH (10:11)
[2016-10-10] MEDS: ISOSORBIDE MONONITRATE 30 MG TAB PO SCH (10:11)
[2016-10-10] MEDS: PRAVASTATIN SOD 40 MG TAB PO SCH (10:11)
[2016-10-10] MEDS: CITALOPRAM HYDROBROMIDE 20 MG TAB PO SCH (10:12)
[2016-10-10] MEDS: PANTOPRAZOLE SOD 40 MG DELAYED RELEASE TAB PO SCH (10:12)
[2016-10-10] MEDS: CETIRIZINE HCL 10 MG TAB PO SCH ×2 (10:12→22:08)
[2016-10-10] MEDS: LEVOTHYROXINE SODIUM 75 MCG TAB PO SCH (10:12)
[2016-10-10] MEDS: CHOLECALCIFEROL (VIT D3) 1000 UNIT TAB PO SCH (10:12)
[2016-10-10] MEDS: CYANOCOBALAMIN 1,000 MCG TAB PO SCH (10:12)
[2016-10-10] MEDS: METOPROLOL SUCCINATE 50 MG EXTENDED RELEASE TAB PO SCH (10:12)
[2016-10-10] MEDS: AMIODARONE 200 MG TAB PO SCH (10:12)
[2016-10-10] MEDS: GABAPENTIN 300 MG CAP PO SCH ×2 (10:12→22:08)
[2016-10-10] MEDS: DABIGATRAN ETEXILATE 150 MG CAP PO SCH ×2 (10:13→22:08)
--- NOTE | 2016-10-10 11:55 | EKG ---
Date Performed: 10/09/2016 Time Performed: 09:36:05 PTAGE: 81 years EKG: Sinus rhythm NONSPECIFIC T-WAVE ABNORMALITY BORDERLINE ECG PREVIOUS TRACING : 07/27/2016 08.40 DOCTOR: Leoncio Jara Interpretating Date/Time 10/10/2016 11:47:21
[2016-10-10] MEDS: LEVOFLOXACIN 750 MG PREMIX INJ 150 ML IV SCH (13:30)
[2016-10-11 00:10] VITALS: BP 155/74; PULSE 78; RESP 18; TEMP 97.8; O2SAT 97
[2016-10-11 03:02] VITALS: BP 179/91; PULSE 70; RESP 18; TEMP 98.8; O2SAT 98
[2016-10-11] MEDS: methylPREDNISolone SOD SUCC 125 MG/2 ML VIAL IVP SCH (06:28)
[2016-10-11 07:09] LABS: AUTOMATED NEUTROPHIL # 13.5 TH/MM3 (1.8-7.7); HEMATOCRIT 35.9 % (35.0-46.0); HEMO FLAGS DIFF FINAL; LYMPH % 6.2 % (9.0-44.0); LYMPHOCYTE # 0.9 TH/MM3 (1.0-4.8); MEAN CELL VOLUME 99.9 FL (80.0-100.0); MEAN CORPUSCULAR HEMOGLOBIN 32.8 PG (27.0-34.0); MEAN CORPUSCULAR HGB CONC 32.9 % (32.0-36.0); MONO % 3.3 % (0.0-8.0); NEUT % 90.5 % (16.0-70.0); PLATELET COUNT 163 TH/MM3 (150-450); RED BLOOD COUNT 3.59 MIL/MM3 (4.00-5.30); RED CELL DISTRIBUTION WIDTH 14.2 % (11.6-17.2); WHITE BLOOD COUNT 14.9 TH/MM3 (4.0-11.0)
[2016-10-11 07:27] LABS: BICARBONATE 26.4 MEQ/L (21.0-32.0); POTASSIUM 4.1 MEQ/L (3.5-5.1)
[2016-10-11 08:00] VITALS: PULSE 62
[2016-10-11 08:42] VITALS: BP 152/72; PULSE 62; RESP 20; TEMP 98.3; O2SAT 93
--- NOTE | 2016-10-11 09:19 | HHI.PR ---
Subjective Remarks Resting in bed Awake, alert No wheeze or SOB noted afebrile (Karen Garcia) Objective Objective Results - Vital Signs Date Time Temp Pulse Resp B/P Pulse Ox O2 Delivery O2 Flow Rate FiO2 10/11/16 08:42 98.3 62 20 152/72 93 10/11/16 03:02 98.8 70 18 179/91 98 10/11/16 00:10 97.8 78 18 155/74 97 10/10/16 21:00 70 10/10/16 19:49 98.8 75 20 145/61 92 10/10/16 19:24 94 10/10/16 17:34 73 10/10/16 15:25 98.4 86 19 122/61 95 10/10/16 11:08 98.9 71 19 134/69 96 (Karen Garcia) Result Diagram: 10/11/16 0615 10/11/16 0615 ROS General: Weakness (generalized, but improved for her mobility and shortness of breath), Other (10 point ROS done. Improved shortness of breath no wheezing noted, mobility improving without shortness of breath. Other systems negative or unremarkable) Pulmonary: SOB (exertional but improved), Wheezing (none) (Karen Garcia) Physical Exam Physical Exam PHYSICAL EXAMINATION GENERAL: This is an obese well-developed, female who appears to be in no acute distress resting in the bed. She is alert and awake, HEAD: Normocephalic without any lesion or mass noted. Facial features appear symmetric. OROPHARYNGEAL: Oropharynx without erythema or edema. NECK: Supple. No nuchal rigidity or lymphadenopathy. Trachea midline without deviation. CARDIAC: Regular rhythm, regular rate, S1 and S2 are heard. Distant heart sounds LUNGS: Mild diminished to auscultation bilaterally. No wheeze, no rhonchi. No use of accessory muscles on inspiration or expiration. ABDOMEN: Soft, nontender, no organomegaly or masses. Bowel sounds are heard in all four quadrants. No rebound. No guarding. EXTREMITIES: no edema. Pulses equal bilateral. NEUROLOGICAL: Patient mood and affect appropriate. No focal deficit, talkative SKIN:Warm and moist Objective Remarks I'm feeling much better today (Karen Garcia) A/P Assessment and Plan 1. COPD exacerbation/asthmatic with persistent cough and congestion. 2. Diabetes type 2 uncontrolled. 3. History of paroxysmal atrial fibrillation. 4. History of coronary artery disease and cardiovascular disease. 5. Hyponatremia, mild. PLAN 1. duo nebs, O2 as needed, medications, monitor vital signs and labs. Continue Levaquin IV, Zyrtec. No active wheezing this a.m. patient is able to get up and move around in the room and go to the bathroom without any acute shortness of breath. 2. vital signs reviewed, vital signs are normal, low-grade temp is resolved today 3. telemetry, heart rate in the 70s cardiology consult, decreased amiodarone dose, positive results with decreased wheezing noted 4. Monitor her labs, IV prednisone, patient is able to take by mouth fluids without difficulty appetite good. IV fluids DC'd Accu-Cheks a.c. and h.s. and monitor blood sugars, hyperglycemia and leukocytosis probable secondary to her IV steroids The patient is on Pradaxa. We will use that for our DVT prophylaxis. Protonix for peptic ulcer disease prophylaxis. Discharge planning , possible today Discussed with , Discussed with patient Discussed with nurse Discussed With: Nurse, Family, Other (Karen Garcia) Assessment and Plan patient seen and examined agree with above assessment and plan ok to d/c home on steroid taper and po ceftin discussed with patient discussed with nursing staff discussed with Karen SHAW (Miriam Mckeon MD) Karen Garcia Oct 11, 2016 09:19 Miriam Mckeon MD Oct 11, 2016 10:08
[2016-10-11] MEDS ORDERED: CEFT500T3 PO (10:04)
[2016-10-11] MEDS ORDERED: MEDR4PAK PO (10:06)
[2016-10-11] MEDS: AMIODARONE 200 MG TAB PO SCH (10:48)
[2016-10-11] MEDS: CHOLECALCIFEROL (VIT D3) 1000 UNIT TAB PO SCH (10:48)
[2016-10-11] MEDS: LEVOTHYROXINE SODIUM 75 MCG TAB PO SCH (10:48)
[2016-10-11] MEDS: CETIRIZINE HCL 10 MG TAB PO SCH (10:49)
[2016-10-11] MEDS: CYANOCOBALAMIN 1,000 MCG TAB PO SCH (10:51)
[2016-10-11] MEDS: PANTOPRAZOLE SOD 40 MG DELAYED RELEASE TAB PO SCH (10:51)
[2016-10-11] MEDS: PRAVASTATIN SOD 40 MG TAB PO SCH (10:51)
[2016-10-11] MEDS: METOPROLOL SUCCINATE 50 MG EXTENDED RELEASE TAB PO SCH (10:52)
[2016-10-11] MEDS: ISOSORBIDE MONONITRATE 30 MG TAB PO SCH (10:52)
[2016-10-11] MEDS: ASPIRIN 81 MG CHEW TAB CHEW SCH (10:53)
[2016-10-11] MEDS: CITALOPRAM HYDROBROMIDE 20 MG TAB PO SCH (10:53)
[2016-10-11] MEDS: SODIUM CHLORIDE 0.9% FLUSH 10 ML FLUSH IV FLUSH SCH (10:54)
[2016-10-11] MEDS: [UNRECOGNIZED DRUG - OTHER] INH SCH (10:55)
[2016-10-11] MEDS ORDERED: INSULIN NovoLIN REGULAR SUPPLEMENTAL SCALE SQ SCH (11:00)
[2016-10-11] MEDS: DABIGATRAN ETEXILATE 150 MG CAP PO SCH (11:02)
[2016-10-11] MEDS: GABAPENTIN 300 MG CAP PO SCH (11:03)
[2016-10-11] MEDS: glipiZIDE 5 MG TAB PO SCH (11:03)
--- NOTE | 2016-10-17 18:02 | HHI.DS ---
Discharge Summary Admission Date Oct 09, 2016 at 12:59 Discharge Date: Oct 14, 2016 Admitting Diagnosis acute exacerbation of asthma Brief History This was a pleasant 81-year-old white female who was in her usual state of health up until about two weeks ago. The patient noted that she started out with a mild cough which progressively got worse. The patient stated that she coughs uncontrollably and has symptoms of shortness of breath. For the past four days the patient's cough and shortness of breath has gotten worse and she started running a low grade fever. The patient stated that she has a bed that can roll up and sit up at home and she has been in that position for the past four days. The patient also stated that she has chronic bronchitis and asthma and follows with her PCP, Dr. Ting Winter, for her medical needs. The patient also had symptoms of nausea but no emesis. She had been taking ryxc-amd-totyiej Robitussin and medications for her fever. The was in the hospital back in July with chest pain. She was noted to have paroxysmal atrial fibrillation, probably secondary to her COPD, and had a cardiac cath that showed mild disease which was treated with medical management. Imaging Last Impressions Chest X-Ray 10/09/16 0926 Signed Impressions: Service Date/Time: Sunday, October 09, 2016 09:36 - CONCLUSION: No acute disease. Filiberto Gaxiola MD PE at Discharge GENERAL: This was an obese well-developed, female who appeared to be in no acute distress resting in the bed. She was alert and awake, HEAD: Normocephalic without any lesion or mass noted. Facial features appear symmetric. OROPHARYNGEAL: Oropharynx without erythema or edema. NECK: Supple. No nuchal rigidity or lymphadenopathy. Trachea midline without deviation. CARDIAC: Regular rhythm, regular rate, S1 and S2 are heard. Distant heart sounds LUNGS: Mild diminished to auscultation bilaterally. No wheeze, no rhonchi. No use of accessory muscles on inspiration or expiration. ABDOMEN: Soft, nontender, no organomegaly or masses. Bowel sounds are heard in all four quadrants. No rebound. No guarding. EXTREMITIES: no edema. Pulses equal bilateral. NEUROLOGICAL: Patient mood and affect appropriate. No focal deficit, talkative SKIN:Warm and moist Hospital Course The patient was given albuterol treatments x2 en route as well as 125 mg of Solu-Medrol on the way to the ER and her breathing has much improved. These are the diagnoses that were used to treat this patient during her hospital stay. 1. COPD exacerbation/asthmatic with persistent cough and congestion. 2. Diabetes type 2 uncontrolled. 3. History of paroxysmal atrial fibrillation. 4. History of coronary artery disease and cardiovascular disease. 5. Hyponatremia, mild. Plan of care included duo nebs, O2 as needed, medications, monitor vital signs and labs. Antibiotics included Levaquin IV, Zyrtec. On day of discharge, patient had No active wheezing this a.m. patient is able to get up and move around in the room and go to the bathroom without any acute shortness of breath. vital signs reviewed, vital signs are normal, low-grade temp is resolved today. During her course of stay vital signs were monitored every 4 hours and treated for any abnormals. telemetry was maintained throughout hospital stay and monitored, heart rate noted in the 70s no acute ventricular ectopy noted. cardiology consult was initiated to evaluate patient's paroxysmal atrial fib and her COPD exacerbation. Cardiology decreased amiodarone dose, thinking that this may be part of her COPD exacerbation. Patient responded positively to this plan of care Monitor her labs, IV prednisone, patient is able to take by mouth fluids without difficulty Patient had no problems with her appetite. Patient required gentle hydration initially through her hospital stay, IV fluids DC'd after she was stabilized Accu-Cheks a.c. and h.s. and monitor blood sugars, hyperglycemia and leukocytosis probable secondary to her IV steroids The patient is on Pradaxa for her anticoagulant therapy. This was also used for our DVT prophylaxis. Protonix for peptic ulcer disease prophylaxis. Patient was evaluated on day of discharge per CLOTHING DESIGNER, and Dr. castro. It was thought that her COPD was under control patient to be managed on an outpatient basis with her medications. Pt Condition on Discharge: Stable Discharge Disposition: Discharge Home Discharge Instructions DIET: Follow Instructions for: Heart Healthy Diet Activities you can perform: Regular-No Restrictions New Medications: Cefuroxime (Ceftin) 500 Mg Tab 500 MG PO BID Infection #10 Ref 0 TAB Methylprednisolone Dosepak (Medrol Dosepak) 4 Mg Dspk 4 MG PO DIRECTED Per Pharmacist direction #1 Ref 0 DSPK Continued Medications: Aspirin (Aspirin) 81 Mg Chew 81 MG CHEW DAILY Ref 0 TAB Cholecalciferol (Vitamin D3) 1,000 Unit Cap 1000 UNITS PO DAILY Nutritional Supplement #1 Ref 0 BOTTLE Citalopram (Citalopram) 20 Mg Tab 20 MG PO DAILY Control Depression #30 Ref 0 TAB Cyanocobalamin (Vitamin B-12) 6,000 Mcg Subl 6000 MCG SL DAILY Nutritional Supplement Ref 0 TAB.SL Dabigatran (Pradaxa) 150 Mg Cap 150 MG PO BID Blood Clot Prevention #60 Ref 0 CAP Fluticasone-Salmeterol 12 GM Inh (Advair Hfa 12 GM Inh) 115-21 Mcg/Act Aer 2 PUFF INH BID #1 Ref 0 INHALER Gabapentin (Gabapentin) 300 Mg Cap 300 MG PO BID #60 Ref 0 CAP Glipizide (Glipizide) 5 Mg Tab 5 MG PO DAILY Take 30 minutes before a meal Blood Sugar Management #30 Ref 0 TAB Isosorbide Mononitrate ER (Isosorbide Mononitrate ER) 30 Mg Baylee 30 MG PO DAILY Prevent Chest Pain #30 Ref 0 TAB Levothyroxine (Levothyroxine) 75 Mcg Tab 75 MCG PO DAILY Thyroid #30 Ref 0 TAB Lutein (Lutein) 40 Mg Cap 40 MG PO DAILY Nutritional Supplement Ref 0 CAP Metoprolol Succinate ER 24 HR (Metoprolol Succinate ER 24 HR) 100 Mg Tab 100 MG PO DAILY #30 Ref 0 TAB Pantoprazole (Pantoprazole) 40 Mg Tab 40 MG PO DAILY Reflux #30 Ref 0 TAB Simvastatin (Simvastatin) 20 Mg Tab 20 MG PO DAILY Cholesterol Management #30 Ref 0 TAB Sitagliptin (Januvia) 100 Mg Tab 100 MG PO DAILY Blood Sugar Management #30 Ref 0 TAB Discontinued Medications: Amiodarone (Amiodarone) 400 Mg Tab 400 MG PO DAILY Regulate Heart Beat #30 Ref 0 TAB Karen Garcia Oct 17, 2016 18:02
== END 2016-10-11 15:29 | disposition home or self-care (01) ==
LOC: NEPC 09:17 → NEDA 12:59 → NEPGCP 14:14
PROVIDERS: ADMIT Internal Medicine; ATTEND Internal Medicine
DX: J44.1 Chronic obstructive pulmonary disease with (acute) exacerbation (principal); E11.65 Type 2 diabetes mellitus with hyperglycemia; I25.10 Atherosclerotic heart disease of native coronary artery without angina pectoris; I48.0 Paroxysmal atrial fibrillation; E87.1 Hypo-osmolality and hyponatremia; D72.829 Elevated white blood cell count, unspecified; E03.9 Hypothyroidism, unspecified; E78.5 Hyperlipidemia, unspecified; I11.0 Hypertensive heart disease with heart failure; E78.00 Pure hypercholesterolemia, unspecified; K58.9 Irritable bowel syndrome, unspecified; I50.9 Heart failure, unspecified; Z85.118 Personal history of other malignant neoplasm of bronchus and lung; Z90.2 Acquired absence of lung [part of]; Z95.5 Presence of coronary angioplasty implant and graft; Z88.1 Allergy status to other antibiotic agents; Z88.5 Allergy status to narcotic agent; Z88.0 Allergy status to penicillin; Z79.82 Long term (current) use of aspirin; Z79.84 Long term (current) use of oral hypoglycemic drugs; Z87.891 Personal history of nicotine dependence; Z79.01 Long term (current) use of anticoagulants
CPT/HCPCS: 71010; 80048; 80053; 81001; 82948; 83880; 85025; 85610; 85730; 87040; 87804; 93005; 94640; 94664; 96374; 99285; G0378; J1956; J2405; J2930; J7030; J7613

== ENCOUNTER 2016-10-26 12:15 | Emergency (ER) | payer MEDICARE, OTHER ==
[~2016-10-26] VITALS: Ht 157.5 cm; Wt 74.5 kg
[~2016-10-26 12:15] MED LIST changes: +CEFT500T3 PO; +GLIP5TAB8 PO; +LUTE40CA2 PO; +MEDR4PAK PO; +VITA100036 PO; +[UNRECOGNIZED DRUG - CODE] SL
[2016-10-26 12:17] VITALS: BP 195/80; PULSE 78; RESP 20; TEMP 98.7; O2SAT 96
[2016-10-26] MEDS ORDERED: AMIO400T PO (14:58)
[2016-10-26] MEDS ORDERED: [UNRECOGNIZED DRUG - CODE] PO (14:58)
[2016-10-26] MEDS ORDERED: HYDROmorphone HCL PF 1 MG/ML VIAL IM ONE (15:00)
[2016-10-26] MEDS ORDERED: ONDANSETRON HCL 4 MG/2 ML VIAL IV PUSH ONE (15:00)
--- NOTE | 2016-10-26 15:30 | RADRPT ---
EXAM DATE/TIME: 10/26/2016 15:07 [facility] COMPARISON: No previous studies available for comparison. INDICATIONS : Pain after fall. MEDICAL HISTORY : None. SURGICAL HISTORY : None. ENCOUNTER: Initial ACUITY: 1 day PAIN SCORE: 0/10 LOCATION: Right elbow FINDINGS: A limited two-view examination of the right elbow was obtained in standard 4 view trauma series limit ing the sensitivity. The lateral view is mildly rotated. This demonstrates no soft tissue swelling, j oint effusion, fracture or dislocation. Bony mineralization is normal. CONCLUSION: Negative limited two-view study. Nolberto Velásquez MD on October 26, 2016 at 15:28 Board Certified Radiologist. This report was verified electronically.
--- NOTE | 2016-10-26 15:43 | RADRPT ---
EXAM DATE/TIME: 10/26/2016 15:02 [facility] COMPARISON: No previous studies available for comparison. INDICATIONS : Fell last night, right wrist pain. MEDICAL HISTORY : None. SURGICAL HISTORY : None. ENCOUNTER: Initial ACUITY: 1 day PAIN SCORE: 10/10 LOCATION: Right wrist FINDINGS: AP, lateral and oblique views of the right wrist were obtained and demonstrate a comminuted fracture deformity of the distal radius with fracture lines extending into the radiocarpal joint. The carpus i s intact with mild degenerative change. The distal ulna is intact as well. There is overlying soft ti ssue swelling. CONCLUSION: Comminuted fracture of the distal radius. Nolberto Velásquez MD on October 26, 2016 at 15:40 Board Certified Radiologist. This report was verified electronically.
--- NOTE | 2016-10-26 15:44 | PD ---
HPI Chief Complaint: Fall Time Seen by Provider: 15:10 Travel History International Travel<30 days: No Contact w/Intl Traveler<30days: No Traveled to known affect area: No History of Present Illness HPI Patient is an 81-year-old female presenting to the emergency for evaluation of right wrist pain. Patient fell last night when she tripped over her shoe. She currently reports right arm pain that is a 10 out of 10 in nature and aching and throbbing. She also reports associated nausea due to the pain. She denies any chest pain, shortness of breath, dizziness prior to the fall. She has no other physical complaints at this time. Patient did not hit her head or lose consciousness. Patient is on Pradaxa for atrial fibrillation. PFSH Past Medical History Hx Anticoagulant Therapy: Yes (PRADAXA, ASPIRIN) Asthma: Yes Atrial Fibrillation: Yes Blood Disorders: No Anxiety: Yes Depression: No Cancer: Yes (LUNG, RIGHT UPPER LOBE REMOVED) High Cholesterol: Yes Chemotherapy: No Chest Pain: Yes Congestive Heart Failure: Yes COPD: No Coronary Artery Disease: Yes Diabetes: Yes Patient Takes Glucophage: No Gastrointestinal Disorders: Yes (IBS, CONSTIPATION) Genitourinary: Yes (FREQUENCY, URGE INCONTINENCE, [employer]TR[employer] IMPLANT) Hiatal Hernia: Yes Hypertension: Yes Immune Disorder: No Implanted Vascular Access Dvce: Yes Musculoskeletal: No Neurologic: No Reproductive: Yes (UTERINE PRE-CANCER) Radiation Therapy: No Sleep Apnea: No Thyroid Disease: Yes (hypo) Past Surgical History Appendectomy: Yes Body Medical Devices: MEDTRON[employer] IMPLANT Hysterectomy: Yes Tonsillectomy: Yes Other Surgery: Yes (HERNIA REPAIR) Social History Alcohol Use: Yes (DAILY, WINE, 2 GLASSES ON AVERAGE) Tobacco Use: No Substance Use: No Allergies-Medications (Allergen,Severity, Reaction): Coded Allergies: Codeine (Verified Adverse Reaction, Unknown, 10/26/16) Erythromycin (Verified Adverse Reaction, Unknown, 10/26/16) Hydrocodone (Verified Adverse Reaction, Unknown, 10/26/16) Morphine (Verified Adverse Reaction, Unknown, 10/26/16) Penicillin (Verified Adverse Reaction, Unknown, 10/26/16) Reported Meds & Prescriptions Reported Meds & Active Scripts Active Oxycodone-Acetaminophen 5-325 mg Tab 1 Tab PO Q4H PRN Reported Phosphatidylserine 100 Mg Cap 500 Mg PO DAILY Amiodarone (Amiodarone HCl) 400 Mg Tab 400 Mg PO DAILY Vitamin D3 (Cholecalciferol) 1,000 Unit Cap 1,000 Units PO DAILY Vitamin B-12 (Cyanocobalamin) 6,000 Mcg Subl 6,000 Mcg SL DAILY Lutein 40 Mg Cap 40 Mg PO DAILY Glipizide 5 Mg Tab 5 Mg PO DAILY Take 30 minutes before a meal Simvastatin 20 Mg Tab 20 Mg PO DAILY Pradaxa (Dabigatran) 150 Mg Cap 150 Mg PO BID Pantoprazole (Pantoprazole Sodium) 40 Mg Tab 40 Mg PO DAILY Metoprolol Succinate ER 24 HR (Metoprolol Succinate) 100 Mg Tab 100 Mg PO DAILY Levothyroxine (Levothyroxine Sodium) 75 Mcg Tab 75 Mcg PO DAILY Januvia (Sitagliptin Phosphate) 100 Mg Tab 100 Mg PO DAILY Isosorbide Mononitrate ER (Isosorbide Mononitrate) 30 Mg Baylee 30 Mg PO DAILY Gabapentin 300 Mg Cap 300 Mg PO BID Diazepam 5 Mg Tab 5 Mg PO HS PRN Citalopram (Citalopram Hydrobromide) 20 Mg Tab 20 Mg PO DAILY Aspirin 81 Mg Chew 81 Mg CHEW DAILY Advair Hfa 12 GM Inh (Fluticasone-Salmeterol 12 GM Inh) 115-21 Mcg/Act Aer 2 Puff INH BID Review of Systems Except as stated in HPI: all other systems reviewed are Neg Eyes: No: Visual changes HENT: No: Headaches Cardiovascular: No: Chest Pain or Discomfort Respiratory: No: Shortness of Breath Gastrointestinal: Positive: Nausea, No: Abdominal Pain Musculoskeletal: Positive: Myalgias, Arthralgias, Edema, Pain Skin: Positive Change in Pigmentation Neurologic: No: Weakness, Dizziness, Syncope, Headache, Change in Mentation, Sensory Disturbance Physical Exam Narrative GENERAL: Well-developed, well-nourished, alert elderly female. Resting comfortably in no acute distress. SKIN: Focused skin assessment warm/dry. HEAD: Atraumatic. Normocephalic. EYES: Pupils equal and round. No scleral icterus. No injection or drainage. ENT: No nasal bleeding or discharge. Mucous membranes pink and moist. NECK: Trachea midline. No JVD. CARDIOVASCULAR: Regular rate and rhythm. No murmur appreciated. RESPIRATORY: No accessory muscle use. Clear to auscultation. Breath sounds equal bilaterally. GASTROINTESTINAL: Abdomen soft, non-tender, nondistended. Hepatic and splenic margins not palpable. MUSCULOSKELETAL: Right wrist deformity, moderate edema, ecchymosis noted. Positive radial pulse, brisk less than 3 second capillary refill. Patient is neurovascularly intact. NEUROLOGICAL: Awake and alert. No obvious cranial nerve deficits. Motor grossly within normal limits. Normal speech. PSYCHIATRIC: Appropriate mood and affect; insight and judgment normal. Data Data Last Documented VS Vital Signs Date Time Temp Pulse Resp B/P Pulse Ox O2 Delivery O2 Flow Rate FiO2 10/26/16 16:23 18 10/26/16 12:17 98.7 78 195/80 96 Room Air Orders Wrist, Complete ([id number]) (10/26/16 ) Elbow, Limited (Ap&Lat) (10/26/16 ) Iv Access Insert/Monitor (10/26/16 14:47) Hand, Complete (Use5lkc) (10/26/16 ) Ondansetron Inj (Zofran Inj) (10/26/16 15:00) Hydromorphone Pf Inj (Dilaudid Pf Inj) (10/26/16 15:00) Complete Blood Count With Diff (10/26/16 15:41) Comprehensive Metabolic Panel (10/26/16 15:41) Act Partial Throm Time (Ptt) (10/26/16 15:41) Prothrombin Time / Inr (Pt) (10/26/16 15:41) Chest, Single Ap (10/26/16 ) Electrocardiogram (10/26/16 ) Splinting (10/26/16 ) Hydromorphone Pf Inj (Dilaudid Pf Inj) (10/26/16 15:45) Fiberglass Sugartong Sp Ad Arm (10/26/16 ) Sling Cradle Arm (10/26/16 ) Labs Laboratory Tests Test 10/26/16 15:55 White Blood Count 9.5 TH/MM3 Red Blood Count 3.60 MIL/MM3 Hemoglobin 11.7 GM/DL Hematocrit 35.8 % Mean Corpuscular Volume 99.5 FL Mean Corpuscular Hemoglobin 32.5 PG Mean Corpuscular Hemoglobin 32.6 % Concent Red Cell Distribution Width 13.9 % Platelet Count 191 TH/MM3 Mean Platelet Volume 8.9 FL Neutrophils (%) (Auto) 73.2 % Lymphocytes (%) (Auto) 16.3 % Monocytes (%) (Auto) 7.8 % Eosinophils (%) (Auto) 1.5 % Basophils (%) (Auto) 1.2 % Neutrophils # (Auto) 6.9 TH/MM3 Lymphocytes # (Auto) 1.5 TH/MM3 Monocytes # (Auto) 0.7 TH/MM3 Eosinophils # (Auto) 0.1 TH/MM3 Basophils # (Auto) 0.1 TH/MM3 CBC Comment DIFF FINAL Differential Comment Prothrombin Time 11.5 SEC Prothromb Time International 1.0 RATIO Ratio Activated Partial 26.9 SEC Thromboplast Time Sodium Level 134 MEQ/L Potassium Level 4.4 MEQ/L Chloride Level 99 MEQ/L Carbon Dioxide Level 28.1 MEQ/L Anion Gap 7 MEQ/L Blood Urea Nitrogen 7 MG/DL Creatinine 0.72 MG/DL Estimat Glomerular Filtration 78 ML/MIN Rate Random Glucose 170 MG/DL Calcium Level 8.3 MG/DL Total Bilirubin 0.8 MG/DL Aspartate Amino Transf 42 U/L (AST/SGOT) Alanine Aminotransferase 53 U/L (ALT/SGPT) Alkaline Phosphatase 55 U/L Total Protein 6.3 GM/DL Albumin 3.2 GM/DL [facility] Medical Decision Making Medical Screen Exam Complete: Yes Emergency Medical Condition: Yes Interpretation(s) Laboratory Tests Test 10/26/16 15:55 White Blood Count 9.5 TH/MM3 Red Blood Count 3.60 MIL/MM3 Hemoglobin 11.7 GM/DL Hematocrit 35.8 % Mean Corpuscular Volume 99.5 FL Mean Corpuscular Hemoglobin 32.5 PG Mean Corpuscular Hemoglobin 32.6 % Concent Red Cell Distribution Width 13.9 % Platelet Count 191 TH/MM3 Mean Platelet Volume 8.9 FL Neutrophils (%) (Auto) 73.2 % Lymphocytes (%) (Auto) 16.3 % Monocytes (%) (Auto) 7.8 % Eosinophils (%) (Auto) 1.5 % Basophils (%) (Auto) 1.2 % Neutrophils # (Auto) 6.9 TH/MM3 Lymphocytes # (Auto) 1.5 TH/MM3 Monocytes # (Auto) 0.7 TH/MM3 Eosinophils # (Auto) 0.1 TH/MM3 Basophils # (Auto) 0.1 TH/MM3 CBC Comment DIFF FINAL Differential Comment Prothrombin Time 11.5 SEC Prothromb Time International 1.0 RATIO Ratio Activated Partial 26.9 SEC Thromboplast Time Sodium Level 134 MEQ/L Potassium Level 4.4 MEQ/L Chloride Level 99 MEQ/L Carbon Dioxide Level 28.1 MEQ/L Anion Gap 7 MEQ/L Blood Urea Nitrogen 7 MG/DL Creatinine 0.72 MG/DL Estimat Glomerular Filtration 78 ML/MIN Rate Random Glucose 170 MG/DL Calcium Level 8.3 MG/DL Total Bilirubin 0.8 MG/DL Aspartate Amino Transf 42 U/L (AST/SGOT) Alanine Aminotransferase 53 U/L (ALT/SGPT) Alkaline Phosphatase 55 U/L Total Protein 6.3 GM/DL Albumin 3.2 GM/DL Last Impressions Wrist X-Ray 10/26/16 0000 Signed Impressions: Service Date/Time: September 15:02 - CONCLUSION: Comminuted fracture of the distal radius. Nolberto Velásquez MD Hand X-Ray 10/26/16 0000 Signed Impressions: Service Date/Time: September 15:03 - CONCLUSION: 1. The distal radial fracture is again visualized. 2. The hand is intact. Nolberto Velásquez MD Elbow X-Ray 10/26/16 0000 Signed Impressions: Service Date/Time: September 15:07 - CONCLUSION: Negative limited two-view study. Nolberto Velásquez MD Vital Signs Date Time Temp Pulse Resp B/P Pulse Ox O2 Delivery O2 Flow Rate FiO2 10/26/16 12:17 98.7 78 20 195/80 96 Room Air Differential Diagnosis Fracture versus sprain versus strain versus other Narrative Course Patient is an 81-year-old female presenting to emergency evaluation of right hand pain after sustaining a mechanical fall last night. Patient's vital signs are stable, she is neurovascularly intact. Imaging ordered and pending, pain medication per my attending physician. Wrist x-ray shows a distal radius fracture on the right with Dr. Umanzor, orthopedic surgeon who requested patient be admitted to medicine. Sugar tong splint ordered, preop labs, chest x-ray, EKG ordered. Orthopedic surgeon called back, recommending patient follow-up in the office instead of being admitted. Patient will be placed in sugar tong splint. Dr. Whitmore spoke with the patient and her . Patient verbalized understanding of follow-up instructions. Patient is stable for discharge . Labs reviewed and unremarkable Diagnosis Primary Impression: Distal radius fracture, right Qualified Code: S52.501A - Closed fracture of distal end of right radius, unspecified fracture morphology, initial encounter Referrals: Alejandro Umanzor MD 1 day Call to schedule an appointment Patient Instructions: Arm Fracture in Adults (ED), General Instructions Additional Instructions: Follow-up with Dr. Umanzor in one day Return to emergency department for any new or worsening symptoms Keep elevated to help alleviate swelling Take medications as directed, do not drive or operate machinery while taking narcotic pain medication Med/Other Pt SpecificInfo: Prescription(s) given Scripts Oxycodone-Acetaminophen 5-325 mg Tab1 Tab PO Q4H PRN (PAIN) #15 TAB Ref 0 Prov:Pranav Whitmore MD 10/26/16 Disposition: 01 DISCHARGE HOME Condition: Stable Peyton Simon [facility] Oct 26, 2016 15:44
[2016-10-26] MEDS ORDERED: HYDROmorphone HCL PF 1 MG/ML VIAL IV PUSH ONE (15:45)
--- NOTE | 2016-10-26 15:45 | RADRPT ---
EXAM DATE/TIME: 10/26/2016 15:03 [facility] COMPARISON: WRIST RIGHT COMPLETE ([id number]), October 26, 2016, 15:02. INDICATIONS : Right hand pain, fell last night. MEDICAL HISTORY : None. SURGICAL HISTORY : None. ENCOUNTER: Initial ACUITY: 1 day PAIN SCORE: 3/10 LOCATION: Right hand FINDINGS: AP, lateral and oblique views of the right hand were obtained and again demonstrate a comminuted frac ture deformity of the distal radius with fracture lines extending into the radiocarpal joint. 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 The metacarpals and phalanges are intact. CONCLUSION: 1. The distal radial fracture is again visualized. 2. The hand is intact. Nolberto Velásquez MD on October 26, 2016 at 15:42 Board Certified Radiologist. This report was verified electronically.
--- NOTE | 2016-10-26 16:10 | RADRPT ---
EXAM DATE/TIME: 10/26/2016 15:44 [facility] COMPARISON: CHEST SINGLE AP, October 09, 2016, 9:36. INDICATIONS : Evaluate for pneumonia, pneumothorax and communicable disease. Pre op for right wrist surgery. MEDICAL HISTORY : Chronic obstructive pulmonary disease. Carcinoma, lung. Diabetes mellitus type II. bronchitis, at rial fibrillation SURGICAL HISTORY : right upper lobe removed because of lung ca. ENCOUNTER: Initial ACUITY: 1 day PAIN SCORE: 0/10 LOCATION: Bilateral chest FINDINGS: 2 AP views of the chest demonstrate a normal-sized cardiac silhouette multiple clips overlying the ri ght chest. There is mild rightward deviation of the trachea. Staple line is present in the right midl [place]. No pleural effusion, airspace consolidation, or pneumothorax is identified. The bones and soft t issues demonstrate no acute finding. CONCLUSION: Stable postsurgical changes in the right hemithorax. No acute cardiopulmonary abnormality is identifi ed. Omega Mcmullen MD on October 26, 2016 at 16:07 Board Certified Radiologist. This report was verified electronically.
[2016-10-26] MEDS ORDERED: OXYC1TAB63 PO (16:14)
[2016-10-26 16:17] LABS: AUTOMATED NEUTROPHIL # 6.9 TH/MM3 (1.8-7.7); BASOPHIL # 0.1 TH/MM3 (0-0.2); BASOPHIL % 1.2 % (0.0-2.0); EOSINOPHIL # 0.1 TH/MM3 (0-0.4); EOSINOPHIL % 1.5 % (0.0-4.0); HEMATOCRIT 35.8 % (35.0-46.0); HEMO FLAGS DIFF FINAL; LYMPH % 16.3 % (9.0-44.0); LYMPHOCYTE # 1.5 TH/MM3 (1.0-4.8); MEAN CELL VOLUME 99.5 FL (80.0-100.0); MEAN CORPUSCULAR HEMOGLOBIN 32.5 PG (27.0-34.0); MEAN CORPUSCULAR HGB CONC 32.6 % (32.0-36.0); MONO % 7.8 % (0.0-8.0); NEUT % 73.2 % (16.0-70.0); PLATELET COUNT 191 TH/MM3 (150-450); RED CELL DISTRIBUTION WIDTH 13.9 % (11.6-17.2); WHITE BLOOD COUNT 9.5 TH/MM3 (4.0-11.0)
[2016-10-26 16:23] VITALS: RESP 18
[2016-10-26 16:29] LABS: APTT (PATIENT) 26.9 SEC (24.3-30.1); PROTHROMBIN TIME - PATIENT 11.5 SEC (9.8-11.6)
[2016-10-26 16:36] LABS: ALT (GPT) 53 U/L (10-53); ANION GAP 7 MEQ/L (5-15); AST (GOT) 42 U/L (15-37); BICARBONATE 28.1 MEQ/L (21.0-32.0); BLOOD UREA NITROGEN 7 MG/DL (7-18); CHLORIDE 99 MEQ/L (98-107); GLOMERULAR FILTRATION RATE 78 ML/MIN (>89); POTASSIUM 4.4 MEQ/L (3.5-5.1); SODIUM (NA) 134 MEQ/L (136-145)
[2016-10-26 16:38] LABS: ALKALINE PHOSPHATASE 55 U/L (45-117); TOTAL BILIRUBIN ADULT 0.8 MG/DL (0.2-1.0)
== END 2016-10-26 17:45 | disposition home or self-care (01) ==
LOC: NEPD 12:15
DX: S52.501A Unspecified fracture of the lower end of right radius, initial encounter for closed fracture (principal); I48.91 Unspecified atrial fibrillation; E78.00 Pure hypercholesterolemia, unspecified; I50.9 Heart failure, unspecified; I25.10 Atherosclerotic heart disease of native coronary artery without angina pectoris; K58.9 Irritable bowel syndrome, unspecified; I10 Essential (primary) hypertension; W18.31XA Fall on same level due to stepping on an object, initial encounter; Y93.9 Activity, unspecified; Y92.9 Unspecified place or not applicable; Y99.9 Unspecified external cause status; Z79.01 Long term (current) use of anticoagulants
CPT/HCPCS: 29125; 71010; 73070; 73110; 73130; 80053; 85025; 85610; 85730; 96374; 96375; 99283; J1170; J2405